=== PATIENT | female | born 1995 | race Caucasian/White ===

== ENCOUNTER 2017-09-30 23:35 | Emergency (ER) | payer BC ==
[~2017-09-30] VITALS: Ht 157.5 cm; Wt 86.7 kg
[~2017-09-30 23:35] MED LIST: HYDR-569 PO
[2017-10-01] MEDS ORDERED: albuterol 2.5 MG/3 ML nebule NEB ONE (02:35)
[2017-10-01] MEDS ORDERED: predniSONE 20 mg tablet PO ONE (02:35)
[2017-10-01] MEDS ORDERED: IBUP-1984 PO (03:31)
[2017-10-01] MEDS ORDERED: PRED20TA PO (03:31)
[2017-10-01 03:47] VITALS: BP 114/51
== END 2017-10-01 03:49 | disposition home or self-care (01) ==
LOC: ER 23:35
DX: J45.909 Unspecified asthma, uncomplicated (principal); Z79.899 Other long term (current) drug therapy
CPT/HCPCS: 71046; 93005; 94640; 94760; 99284; J7512